=== PATIENT | male | born 1970 | race African-American/Black ===

== ENCOUNTER 2017-11-17 20:45 | Emergency (ER) | payer MEDICAID | END 2017-11-17 22:21 | disposition home or self-care (01) | LOC: D.ER 20:45 | DX: S16.1XXA Strain of muscle, fascia and tendon at neck level, initial encounter (principal); V43.52XA Car driver injured in collision with other type car in traffic accident, initial encounter; Y93.89 Activity, other specified; Y92.410 Unspecified street and highway as the place of occurrence of the external cause; I10 Essential (primary) hypertension ==

== ENCOUNTER 2018-04-25 04:31 | Emergency (ER) | payer MEDICAID ==
[~2018-04-25] VITALS: Ht 177.8 cm; Wt 111.4 kg
[2018-04-25 04:35] VITALS: Ht 177.8 cm; Wt 111.4 kg
[2018-04-25] MEDS ORDERED: TOPROL XL25 MG (04:37)
[2018-04-25] MEDS ORDERED: LISINOPRIL2.5 MG (04:37)
[2018-04-25] MEDS ORDERED: NORVASC2.5 MG (04:37)
[2018-04-25] MEDS ORDERED: NAPROSYN500 MG PO (04:59)
[2018-04-25 05:15] VITALS: BP 136/89
== END 2018-04-25 05:16 | disposition home or self-care (01) ==
LOC: D.ER 04:31
DX: S16.1XXA Strain of muscle, fascia and tendon at neck level, initial encounter (principal); X50.0XXA Overexertion from strenuous movement or load, initial encounter; Y93.89 Activity, other specified; Y92.019 Unspecified place in single-family (private) house as the place of occurrence of the external cause; I10 Essential (primary) hypertension

== ENCOUNTER → 2018-06-15 | Emergency (ER) | payer MEDICAID ==
[2018-04-25 04:35] VITALS: BMI 35.2
[~2018-06-15] MED LIST: LISINOPRIL2.5 MG; NAPROSYN500 MG PO; NORVASC2.5 MG; TOPROL XL25 MG
== END | disposition home or self-care (01) ==
LOC: D.ER 16:18
DX: M54.9 Dorsalgia, unspecified (principal); M54.2 Cervicalgia